=== PATIENT | male | born 1960 | race Caucasian/White ===

== ENCOUNTER 2020-10-23 19:34 | Emergency (ER) | payer OTHER ==
[2020-10-23] MEDS ORDERED: MEDROL 4MG DOSEP4 MG PO (22:30)
== END 2020-10-23 22:39 | disposition home or self-care (01) ==
LOC: FER 19:34
DX: R09.81 Nasal congestion (principal); F17.210 Nicotine dependence, cigarettes, uncomplicated; Z88.0 Allergy status to penicillin
CPT/HCPCS: 99283; J1100